=== PATIENT | male | born 1970 | race Caucasian/White ===

== ENCOUNTER 2017-07-06 14:13 | Emergency (ER) | payer OTHER ==
[~2017-07-06] VITALS: Ht 185.4 cm; Wt 95.5 kg
[2017-07-06 14:20] VITALS: BP 164/103; PULSE 97; RESP 18; O2SAT 98
--- NOTE | 2017-07-06 15:31 | ED.REPORT ---
HPI-General Illness Date of Service Jul 06, 2017 ED Provider: Bakari Ramon PA-C 47-year-old male with a history of IV drug use presents emergency Department with a chief complaint of left thumb abscess. Patient reports one week history of pain, redness and swelling on the back of his left thumb. He believes this is from injecting. Denies fever, malaise, shaking chills. Nursing Notes Stated Complaint: LEFT THUMB Chief Complaint: Skin Rash/Abscess Nursing Notes Reviewed: Yes Allergies: Coded Allergies: No Known Allergies (Unverified , 07/06/17) Scheduled Cephalexin (Cephalexin) 500 Mg Tablet 500 MG PO QID Sulfamethoxazole/Trimeth 800-160 mg (Bactrim DS) 1 Each Tablet 1 TABLET PO BID General Time Seen by MD: 15:22 Chief Complaint Other (abscess, left thumb) Past Medical History Past Medical History Denies Review of Systems Negative unless stated otherwise in history of present illness Physical Exam General: Well appearing, well developed, well nourished, no acute distress. Left thumb: Red, swollen and exquisitely tender on the dorsal aspect distal to the DIP joint. Blanching over the proximal nail fold and nail bed. Range of motion of the DIP joint is limited by pain, but patient is able to actively move the distal phalanx. Brisk capillary refills intact. Head: Atraumatic, normocephalic. Eyes: No scleral icterus or injection. No discharge. Vision grossly intact. ENT: Voice clear, hearing grossly intact. Respiratory: No respiratory distress, no increased work of breathing. Speaks in complete sentences. Skin: Widely dispersed sores, one to 2 cm in diameter with central crusting and surrounding erythema. Warm and dry. Neurological: Grossly nonfocal. Psychological: alert and oriented. Speech appropriate, linear and logical. Behavior appropriate. Vital Signs Vital Signs Date Time Temp Pulse Resp B/P Pulse Ox O2 Delivery O2 Flow Rate FiO2 07/06/17 18:38 37.1 81 20 151/93 96 Room Air 07/06/17 14:20 36.5 97 18 164/103 98 Room Air Elevated blood pressure Procedures Incision & Drainage Paronychia Procedure Performed by: Allied health pract Consent / Setup / Site Prep: Consent from patient, Hand hygiene observed Skin Preparation Agent: Hibiclens - Chlorhexidine (thoroughly scrubbed) Local Anesthesia: Digital block, Lidocaine 1% (5 mL, given when bupivacaine failed to achieve anesthesia), Bupivacaine 0.5% (4 mL), 27g needle Incised Abscess with Scalpel: #11 Pus Drained: Medium, Purulent discharge Irrigation: 50 cc Post-Procedure / Complications: Culture obtained, Gram stain ordered, Dressing applied, No complications, Condition improved, Tolerated procedure well , Patient stable Re-Eval/Medical Decision Med Decision/Clinical Course 47-year-old IV drug user presents emergency Department 1 week of worsening redness pain and swelling on the dorsal aspect of his left thumb. Physical examination reveals significant redness, swelling pain and blanching along the proximal fold and nail bed. Normal vitals, with the exception of elevated blood pressure. I discussed the case with Dr. Bragg, who met with and examine the patient. is consulted, he recommends incision and drainage , Keflex and Bactrim and follow up with Dr. Tomas in 1-2 weeks. Wound is incised and drained, dressed per above procedure note. Antibiotics are supplied per Dr. Jang's instructions. Advise [id number] analgesia. Orthopedic follow-up referral is provided. Advised regarding primary care follow-up, provided emergency return precautions. Patient verbalized understanding of, and consent to, the plan. Discharge & Departure Primary Impression: Abscess Disposition: Home Discharge Condition All VS Reviewed: Yes Patient Instructions: Incision and Drainage (ED) Additional Instructions: Evaluation in the emergency department includes interview, physical examination and consultation with orthopedics. Per their recommendation we have drained the abscess on your left thumb. Cultures have been sent for evaluation. I will write a prescription for Keflex 500 mg be taken 4 times a day for the next 10 days. Additionally I will write a prescription for Atrovent DS taken twice a day for 10 days. Please be sure to take every dose, he would have symptoms completely resolved. Follow-up with Dr. Tomas, the hand surgeon, in the next week. I will provide you with a referral. You are welcome to find a hand surgeon closer to your home to follow up with. The pain is best treated with 600 mg of ibuprofen (Advil, Motrin) every 6 hours , or 1000 mg of acetaminophen (Tylenol) every 6 hours. These drugs can be taken at the same time for more severe pain. Return to the emergency department at any time for new or worsening symptoms including increasing redness, swelling, pain, fever or feeling ill. Referrals: Dion Tomas DO EDSupervising Provider for APC: Mango Bragg MD Attending Statement I saw and evaluated the patient in conjunction with the PA. I agree with the plan and findings as documented above. In brief, 47-year-old male presenting to the ED for evaluation of an abscess to his thumb. Patient appears disheveled, older than stated age. Nonlabored respirations. Neurovascularly intact. Able to both flex and extend at the interphalangeal joint. Procedure as per above, tolerated well. I am concerned about infection going forward and the patient was started on antibiotics; appreciate orthopedics assistance. Given above, plan discharge home w/ careful return precautions, close outpatient follow up. Patient agreeable to plan as stated, no further questions. copies to: Dion Tomas Seth PA-C Jul 06, 2017 15:31 Mango Bragg MD Jul 06, 2017 15:36
[2017-07-06] MEDS ORDERED: Bupivacaine 0.5% 50 mL Inj INFILTRATE ONE (15:35)
[2017-07-06] MEDS ORDERED: Bupivacaine-MPF 0.5% 30 mL Inj ONE (15:36)
[2017-07-06] MEDS ORDERED: CEPH500T PO (18:07)
[2017-07-06] MEDS ORDERED: SULF1TAB7 PO (18:07)
[2017-07-06 18:38] VITALS: BP 151/93; PULSE 81; RESP 20; O2SAT 96
== END 2017-07-06 18:39 | disposition home or self-care (01) ==
LOC: SED 14:13
DX: L02.512 Cutaneous abscess of left hand (principal)
CPT/HCPCS: 10060; 87070; 87075; 87147; 87205; 96374; 99283; J1885